=== PATIENT | female | born 1990 | race Caucasian/White ===

== ENCOUNTER 2018-11-15 06:41 | Day surgery (SDC) | payer MEDICAID ==
[2018-11-15] MEDS ORDERED: Bupivacaine 0.5% 30 ML SDV ONE (06:46)
[2018-11-15] MEDS ORDERED: Sodium Chloride 0.9% 1,000 ML IV SCH (07:00)
[2018-11-15] MEDS ORDERED: ceFAZolin 1 GM in Premix Bag 1 BAG IV ONE (07:15)
[2018-11-15] MEDS ORDERED: Propofol 200 MG/20 ML SDV ONE (07:27)
[2018-11-15] MEDS ORDERED: Midazolam 1 MG/ML 2 ML SDV ONE (07:27)
[2018-11-15] MEDS ORDERED: fentaNYL 100 MCG/2 ML SDV ONE (07:27)
[2018-11-15] MEDS ORDERED: Lidocaine 0.5% 50 ML SDV ONE (07:29)
[2018-11-15] MEDS ORDERED: Clindamycin Phosphate 900 MG in Sodium Chloride 0.9% 100 ML IV ONE (07:43)
[2018-11-15 12:19] VITALS: BP 97/72
--- NOTE | 2018-11-15 13:45 | PCM.OPNOTE ---
- General Post-Op/Procedure Note Date of Surgery/Procedure: 11/15/18 Operative Procedure(s): Right carpal tunnel release and right first dorsal compartment release Findings: Mild to moderate compression on median nerve, no abnormalities of tendons in carpal tunnel or first dorsal compartment. Pre Op Diagnosis: Right Carpal Tunnel Syndrome, right DeQuervain's tenosynovitis Post-Op Diagnosis: Same Anesthesia Technique: Regional Block, Other (see below) (Ruhenstroth block) Secondary Surgeon: David Goncalves EBL in mLs: 2 Condition: Good Free Text/Narrative:: Intake & Output 11/14/18 11/15/18 11/15/18 22:59 06:59 14:59 Intake Total 245 Balance 245 Indicationas: Mary is a 28-year-old female with a history of right wrist and hand pain for the past year. She has tingling and numbness into the fingers. She has pain that shoots into the fingers as well as pain over the radial aspect of the wrist. She has recently had EMGs done which are consistent with mild carpal tunnel syndrome. Her examination symptoms and EMGs are consistent with right carpal tunnel syndrome. The radial wrist pain is consistent with de Quervain's tenosynovitis. She has a history of both conditions on her left hand as well. She tried conservative treatment with these and eventually had surgery. Plan right carpal tunnel release and release of the first dorsal compartment right wrist. Risks, benefits and potential complications were discussed. She agrees to proceed. Procedure after IV infiltration of antibiotic a Ruhenstroth block was performed on the right upper extremity. After confirmation of adequate anesthetic an incision was made over the radial styloid and carried down through the subcutaneous tissues. Care was taken to avoid sensory branches of the nerve first dorsal compartment was identified and a 15 blade was used to make an opening in the overlying fascia. Scissors were then used to complete release of the compartment proximally and distally. Both tendons were visualized and no significant abnormalities were noted. A small division was present within the compartment. The incision was then irrigated. Attention was then turned to the palm. A longitudinal incision was made from the palmar crease in line with the fourth finger. This was carried down through the palmar fat pad to the palmar fascia. Self-retaining retractor was placed. Palmar fascia and transverse carpal ligament were then divided under direct visualization. Release of the ligament was carried proximally and distally under direct visualization with scissors. Complete release was confirmed by visualization and palpation. Contents of the carpal tunnel was inspected. No abnormalities of the tendons or synovium was identified. A mild to moderate constriction on the median nerve is noted. Palm wound is irrigated. Incisions and closed with 3-0 nylon in interrupted mattress fashion. The radial styloid incision is irrigated again and closed in a similar fashion with 3-0 nylon. Both incisions are then infiltrated with 0.5% Marcaine. A sterile dressing is applied with an Garo bandage. Patient tolerated the procedure well and there were no complications. She taken from the operating room in stable condition. Operative note on Samy Bennett.
== END 2018-11-15 12:12 | disposition home or self-care (01) ==
LOC: JP.SDS 06:41
PROVIDERS: ATTEND Specialist
DX: G56.01 Carpal tunnel syndrome, right upper limb (principal); M65.4 Radial styloid tenosynovitis [de Quervain]; E03.9 Hypothyroidism, unspecified; E66.9 Obesity, unspecified; F32.9 Major depressive disorder, single episode, unspecified; Z88.0 Allergy status to penicillin; Z91.018 Allergy to other foods; Z88.8 Allergy status to other drugs, medicaments and biological substances; Z88.1 Allergy status to other antibiotic agents; Z68.44 Body mass index [BMI] 60.0-69.9, adult
CPT/HCPCS: 25000; 64721; 81025; J2250; J2704; J3010; J3490; J7030

== ENCOUNTER 2025-02-26 09:39 | Emergency (ER) | payer MEDICAID ==
[2025-02-26] MEDS: fentaNYL 100 MCG/2 ML SDV NASBOTH ONE (11:42)
[2025-02-26] MEDS: fentaNYL 100 MCG/2 ML SDV IM ONE (11:45)
[2025-02-26 12:08] VITALS: BP 114/67; PULSE 81
== END 2025-02-26 13:30 | disposition home or self-care (01) ==
LOC: JP.ED 09:39
DX: S63.502A Unspecified sprain of left wrist, initial encounter (principal); S09.90XA Unspecified injury of head, initial encounter; S00.83XA Contusion of other part of head, initial encounter; E03.9 Hypothyroidism, unspecified; E66.9 Obesity, unspecified; Z86.16 Personal history of COVID-19; Z79.899 Other long term (current) drug therapy; Z79.890 Hormone replacement therapy; Z88.8 Allergy status to other drugs, medicaments and biological substances; Z68.44 Body mass index [BMI] 60.0-69.9, adult; Z91.018 Allergy to other foods; Z88.1 Allergy status to other antibiotic agents; W10.9XXA Fall (on) (from) unspecified stairs and steps, initial encounter; Y92.009 Unspecified place in unspecified non-institutional (private) residence as the place of occurrence of the external cause
CPT/HCPCS: 70450; 70486; 73110; 96372; 99284; J3010